=== PATIENT | male | born 1990 | race Caucasian/White ===

== ENCOUNTER 2023-07-12 17:55 | Emergency (ER) | payer OTHER ==
[~2023-07-12] VITALS: Ht 190.5 cm; Wt 110.0 kg
[2023-07-12 18:15] VITALS: TEMP 97.7
[2023-07-12 18:16] VITALS: BP 127/80; PULSE 61; RESP 16
[2023-07-12] MEDS: SODIUM CHLORIDE 0.9% 1,000 ML IV ONE (18:32)
[2023-07-12] MEDS: ACETAMINOPHEN 500 MG TABLET PO ONE (18:32)
[2023-07-12] MEDS: MAG HYDROX/ALUMINUM HYD/SIMETH 30 ML SUSPENSION UDCUP PO ONE (18:32)
[2023-07-12] MEDS: KETOROLAC TROMETHAMINE 30 MG/ML VIAL IVP ONE (18:33)
[2023-07-12] MEDS: FAMOTIDINE 20 MG/2 ML VIAL IVP ONE (18:33)
[2023-07-12 18:47] LABS: BASOPHILS % (AUTO) 0.8 % (0.0-2.0); EOSINOPHILS % (AUTO) 4.3 % (1.0-6.0); HEMATOCRIT 40.6 % (41-53); HEMOGLOBIN 13.6 g/dL (13.5-17.5); LYMPHOCYTES # (AUTO) 2.3 K/uL (1.0-4.8); LYMPHOCYTES % (AUTO) 45.1 % (22.0-44.0); MEAN CORPUSCULAR HEMOGLOBIN 31.8 pg (26.0-34.0); MEAN CORPUSCULAR HGB CONC 33.4 G/dL (31.0-37.0); MEAN CORPUSCULAR VOLUME 95 fL (80-100); MONOCYTES # (AUTO) 0.5 K/uL (0.1-1.0); MONOCYTES % (AUTO) 9.9 % (2.0-9.0); NEUTROPHILS % (AUTO) 39.9 % (40.0-70.0); PLATELET COUNT (AUTO) 210 K/uL (150-450); RED BLOOD CELL COUNT(AUTO) 4.28 MIL/uL (4.50-5.90); RED CELL DISTRIBUTION WIDTH 14.8 % (11.5-14.5); WHITE BLOOD COUNT (AUTO) 5.1 K/uL (4.5-11.0)
[2023-07-12 18:48] LABS: ANION GAP 7 mmol/L (8-16); CALCIUM, TOTAL 9.1 mg/dL (8.8-10.5); CARBON DIOXIDE 31 mmol/L (22-29); CHLORIDE 102 mmol/L (98-107); CREATININE 0.98 mg/dL (0.60-1.30); GLOMERULAR FILTR. RATE CALC > 60 mL/min (>60); GLUCOSE,RANDOM 80 mg/dL (70-110); POTASSIUM 4.4 mmol/L (3.5-5.1); SODIUM SERUM 140 mmol/L (136-145); UREA NITROGEN, BLOOD 12 mg/dL (7-18)
[2023-07-12 18:54] LABS: ALANINE AMINOTRANSFERASE 26 U/L (12-78); ALBUMIN 3.9 g/dL (3.4-5.0); ALKALINE PHOSPHATASE 61 U/L (46-116); ASPARTATE AMINOTRANSFERASE 19 U/L (15-37); BILIRUBIN,TOTAL 0.5 mg/dL (0.1-1.0); LIPASE 17 U/L (16-77); TOTAL PROTEIN, SERUM 6.6 g/dL (6.4-8.2)
[2023-07-12] MEDS ORDERED: IOHEXOL 350 MG/ML 100 ML VIAL ONE (18:57)
[2023-07-12] MEDS ORDERED: SODIUM CHLORIDE 0.9% 100 ML ONE (18:57)
== END 2023-07-12 21:49 ==
LOC: EMS 17:57
DX: R10.12 Left upper quadrant pain (principal)
CPT/HCPCS: 99285; 74177; 96374; 76705; 96361; 96375; 80053; 83690; 85025; 36415; J1885; Q9967; J7030; J7050